=== PATIENT | male | born 1990 | race Caucasian/White ===

== ENCOUNTER 2021-01-30 09:44 | Emergency (ER) | payer OTHER, SELFPAY ==
--- NOTE | ~2021-01-30 | XR_ITS ---
EXAMINATION: XR KNEE, LEFT CLINICAL INFORMATION: Fall. COMPARISON: None TECHNIQUE: Four views of the left knee. FINDINGS: There is moderate suprapatellar soft tissue swelling and mild joint effusion suspected. No visible acute fracture or dislocation seen. No bony erosive changes. No acute fracture or dislocation seen. XR/XR knee LT 4V IMPRESSION: Mild suprapatellar joint effusion and moderate suprapatellar soft tissue swelling but no underlying fracture or dislocation seen. No loose bodies.
[2021-01-30 09:53] VITALS: BP 142/77; PULSE 92; RESP 18; TEMP 36.6; O2SAT 98; BMI 22.1
[2021-01-30 10:40] VITALS: BP 122/72; PULSE 74; RESP 18; TEMP 37.1; O2SAT 100
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
[2021-01-30] MEDS: Diphth,Pertus(ACell),Tet Adult 0.5 ML SYRINGE IM (10:55)
== END 2021-01-30 11:28 | disposition home or self-care (01) ==
PROVIDERS: Emergency Provider Emergency Medicine Emergency Medical Services; PCP Internal Medicine
DX: S83.92XA Sprain of unspecified site of left knee, initial encounter (principal); M25.562 Pain in left knee; V19.40XA Pedal cycle driver injured in collision with unspecified motor vehicles in traffic accident, initial encounter; Y93.9 Activity, unspecified; Y92.410 Unspecified street and highway as the place of occurrence of the external cause; Y99.9 Unspecified external cause status; Z79.899 Other long term (current) drug therapy
CPT/HCPCS: 73564; 90471; 90715; 99284

== ENCOUNTER 2021-02-10 17:35 | Emergency (ER) | payer OTHER, SELFPAY ==
[2021-02-10 17:59] VITALS: BP 128/82; PULSE 80; RESP 18; TEMP 36.8; O2SAT 99; BMI 26.6
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
[2021-02-10 20:04] VITALS: BP 121/72; PULSE 71; TEMP 37; O2SAT 98
[2021-02-10] MEDS: NaPROXEN 500 MG TABLET PO (20:38)
== END 2021-02-10 20:46 | disposition home or self-care (01) ==
PROVIDERS: Emergency Provider Emergency Medicine; PCP Internal Medicine
DX: M67.962 Unspecified disorder of synovium and tendon, left lower leg (principal)
CPT/HCPCS: 99283; 99284

== ENCOUNTER 2021-02-24 14:47 | Outpatient (REF) | payer OTHER, SELFPAY ==
--- NOTE | ~2021-02-24 | MR_ITS ---
EXAMINATION: MR KNEE WITHOUT CONTRAST, LEFT CLINICAL INFORMATION: Left knee pain and swelling. COMPARISON: Left knee radiographs dated 01/30/2021. TECHNIQUE: MRI of the knee without contrast was performed using routine sequences on a high-field scanner. FINDINGS: MENISCI: Medial Meniscus: Intact Lateral Meniscus: Intact LIGAMENTS: Cruciate: Intact Collateral: Intact EXTENSOR MECHANISM: Intact ARTICULAR CARTILAGE/BONE: Patellofemoral Compartment: Intact articular cartilage. Medial Compartment: Intact articular cartilage. Lateral Compartment: Intact articular cartilage. Prominent marrow edema throughout the anterior aspect of the tibial plateau extending throughout the epiphysis and metaphysis. No definite associated fracture line. Findings are consistent with a prominent osseous contusion. JOINT FLUID AND BURSAE: Small joint effusion. MR/MR knee LT wo con IMPRESSION: 1. Prominent osseous contusion throughout the anterior aspect of the tibial plateau without a definite fracture line. 2. Small joint effusion. 3. No acute meniscal or ligamentous injury.
== END 2021-02-24 14:48 | disposition home or self-care (01) ==
LOC: HO.MRI 14:47
PROVIDERS: Visit Provider Nurse Practitioner Family
DX: M25.562 Pain in left knee (principal)
CPT/HCPCS: 73721

== ENCOUNTER → 2021-03-03 12:25 | Outpatient (BNVA) | payer OTHER, SELFPAY | PROVIDERS: Visit Provider Physician Assistant | DX: S80.12XA Contusion of left lower leg, initial encounter (principal); M25.562 Pain in left knee; M25.462 Effusion, left knee | CPT/HCPCS: 99212 ==

== ENCOUNTER 2022-11-02 19:49 | Emergency (ER) | payer SELFPAY ==
[2022-11-02 19:59] VITALS: BP 143/76; PULSE 77; RESP 16; TEMP 35.9; O2SAT 100; BMI 25.1
--- NOTE | 2022-11-02 20:00 | ED.GENADULT ---
HPI - General Adult General Chief complaint: Skin/Abscess/Foreign Body Stated complaint: cyst in right armpit Time Seen by Provider: 11/02/22 20:48 Source: patient Mode of arrival: ambulatory Limitations: language barrier (Martiniquais-speaking medical screener utilized) History of Present Illness HPI narrative: Patient is a 32-year-old male who presents to the emergency department for painful lump beneath the right axilla x4 days. Progressively worsening and increasing in size. Denies any additional skin lumps or lesions. Denies fevers or chills. Related Data Previous Rx's Medication Instructions Recorded naproxen 500 mg tablet 500 mg PO BID PRN pain #30 tabs 02/10/21 prednisone 20 mg tablet 40 mg PO DAILY 5 days #10 tabs 02/14/21 cephalexin 500 mg capsule 500 mg PO QID 7 days #28 caps 11/02/22 doxycycline hyclate 100 mg capsule 100 mg PO BID #14 caps 11/02/22 Allergies Allergy/AdvReac Type Severity Reaction Status Date / Time No Known Allergies Allergy Verified 03/03/21 12:37 [No Known Allergies*] Review of Systems Review of Systems: Constitutional :? Denies history of same, Denies any other sites involved, Denies IV drug use, Denies history of MRSA, Denies swollen glands, Denies injury, Denies Fever, Denies Chills, + Sig Pain, Denies Systemic symptoms Cardiovascular : No Chest Pain, No SOB Respiratory : No Dyspnea Gastrointestinal : No abdominal pain Musculoskeletal : No Joint Swelling Skin : + abscess with surrounding erythema, No skin laceration, No Foreign bodies, No spreading rash, Denies bites, Denies discharge, Neuro : No Weakness, No Numbness/tingling Psych : No SI/HI/thoughts of self injury [facility] Past Medical History Attestation statement: The following information was validated with the patient. Source: old records reviewed Medical History Low back pain Surgical History No pertinent past surgical history Family History Family History Mother No problems noted. Social History Social History (Updated 03/03/21 @ 12:38 by Virgil Dietz) Housing: House Alcohol intake: never Patient Tobacco Use Status: Never used Tobacco e-Cigarette/Vaping Use: Never Used Second Hand Smoke Exposure: No Use of substances other than those prescribed or required for medical reasons: No Advance Directives: No Advance Directives Information Provided: Yes service: No Current occupational status: employed Current occupation: lt handed/land scaping Physical Exam ED Vital Signs: Vital Signs - 24 hr 11/02/22 19:59 Temperature 96.7 F L Pulse Rate 77 Respiratory Rate 16 Blood Pressure 143/76 H Pulse Oximetry 100 Oxygen Delivery Method Room Air BMI result Body Mass Index 25.1 Appearance: Alert.?Oriented to person, place and time. No acute distress.?Normal affect. Neck: Normal inspection.? Neck supple.? No lymphadenopathy Axilla: Right axilla with abscess, central fluctuance, surrounding induration and mild cellulitis? CVS: Heart sounds normal. Normal heart rate and rhythm.? Pulses normal.?? Respiratory: No respiratory distress.? Lung sounds clear to auscultation bilaterally?? Abdomen: Soft and non-tender. Skin: Skin warm and dry.? Normal skin color.? Neuro: Moves all extremities spontaneously. Sensation intact bilaterally. Ambulates with normal steady gait. Course Course Course Narrative: This is an RME: Additional HPI, ROS, PE not included below will be deferred to primary provider. 32 yo M no significant pmhx presents w/ abscess to R axilla since sunday. Reports 9/10 pain. No hx of this in past. Unclear tetanus status. PE W/ abscess to R axilla. Medications Administered Discontinued Medications Generic Name Dose Route Start Last Admin Trade Name Demetri PRN Reason Stop Dose Admin Lidocaine HCl 2 ml 11/02/22 21:52 11/02/22 22:16 Lidocaine Hcl 1 % Mpf 2 Ml Vial INFILTRATI 11/02/22 21:53 2 ml ONCE ONE Administration Procedures Abscess I/D Site: other (axilla) Side (if applicable): right Local Anesthetic: lidocaine 1% Amount of anesthesia used (mL): 2 Technique: incised with blade Sent for culture/gram staining?: No Irrigation: Yes Packing used?: none Medical Decision Making Medical Decision Making MDM Narrative: Patient is a 32-year-old male presents emergency department for evaluation of right axillary lump as noted in HPI. History physical exam consistent with abscess. No systemic toxicity, and patient is well-appearing. There is mild surrounding cellulitis. Not consistent with necrotizing fasciitis, myositis, DVT, osteomyelitis. patient is now status post incision and drainage of abscess and tolerated the procedure well. No complications. No labs or imaging indicated at this time. Will discharge home with course of oral antibiotics and symptomatic treatment instructions. Discussed reasons to return to the emergency department, and follow-up with primary care provider. Patient agreeable with plan of care. Differential Diagnosis Differential Diagnoses: The differential diagnosis associated with the presentation includes (As noted in MDM) Independent Historian Clinical information obtained from an independent historian. History obtained from or confirmed by: Spouse (Patient's spouse is at bedside confirms history ) Tests considered The following testing was considered but not selected: I considered CBC however nontoxic afebrile not feel necessary at this time, see MDM for further elaboration Prescription Management I considered prescription management with: Antibiotic Discharge Plan Discharge Clinical Impression: Abscess of skin or subcutaneous tissue Patient Disposition: Home, Self-Care Instructions: Abscess (ED), Incision and Drainage (ED) Additional Instructions: As discussed, the area may continue to drain over the next few days. Please be sure to apply warm compresses/take warm showers to allow for drainage to occur. Take the entire course of antibiotics as prescribed. You can take ibuprofen 200 mg, 3 tablets (600mg) every 6-8 hours as needed for pain, in addition to Tylenol 500 mg, 2 tablets (1,000mg) every 4-6 hours as needed for pain, but not to exceed 3 doses daily (3,000mg).? Follow-up with your primary care provider You may return back to emergency department any new or worsening symptoms or concerns. This includes but is not limited to fevers, chills, increasing pain, redness, swelling Prescriptions: New cephalexin 500 mg capsule 500 mg PO QID 7 Days Qty: 28 0RF doxycycline hyclate 100 mg capsule 100 mg PO BID Qty: 14 0RF No Action naproxen 500 mg tablet 500 mg PO BID PRN (Reason: pain) Qty: 30 0RF prednisone 20 mg tablet 40 mg PO DAILY 5 Days Qty: 10 0RF Stand Alone Forms: Work/School Release Interventions: ED Discharge Assessment Last Done: 11/02/22 22:47 Discharge Date/Time: 11/02/22 22:48
[2022-11-02] MEDS: Lidocaine HCl 1 % MPF 2 ML VIAL INFILTRATI (22:16)
== END 2022-11-02 22:48 | disposition home or self-care (01) ==
PROVIDERS: Emergency Provider Student in an Organized Health Care Education/Training Program
DX: L02.411 Cutaneous abscess of right axilla (principal)
CPT/HCPCS: 10060; 99284